=== PATIENT | female | born 1945 | race Caucasian/White ===

== ENCOUNTER 2020-04-08 12:00 | Outpatient (CLI) | payer MEDICARE, SELFPAY ==
--- NOTE | ~2020-04-08 | CT_ITS ---
EXAMINATION: CT chest high resolution wo sc DATE: 04/08/2020 12:18 INDICATION: Interstitial pulmonary disease, unspecified TECHNIQUE: Computed tomography (CT) of the chest was performed without intravenous contrast. The dose -length product (DLP) was 241.79 mGy-cm. Automated exposure control and iterative reconstruction tech nique were employed. COMPARISON: 05/27/2018 FINDINGS: Chronic reticular opacities are again seen in the left lower lobe, lingula, and apical post erior segment of the left upper lobe. There is no honeycombing. No new airspace opacities are identif ied. There is no pleural effusion or pneumothorax. Calcified left hilar and mediastinal lymph nodes a re consistent with old granulomatous disease. The heart size is normal. There are no pathologically e nlarged thoracic lymph nodes. A 4 mm fissural lymph node is noted in the major fissure on the right. No suspicious pulmonary nodules are identified. Punctate calcifications in an otherwise normal spleen likely represent healed granulomatous disease. There is mild thoracic spondylosis. IMPRESSION: 1. Stable lung findings on the left, likely related to prior infection. No acute findings or suspicio us interval change. Reviewed, dictated and finalized at location A. IMPRESSION: 1. Stable lung findings on the left, likely related to prior infection. No acut e findings or suspicious interval change.
== END 2020-04-08 12:01 | disposition home or self-care (01) ==
PROVIDERS: PCP Internal Medicine; Visit Provider Nurse Practitioner Family
DX: J84.9 Interstitial pulmonary disease, unspecified (principal)
CPT/HCPCS: 71250

== ENCOUNTER 2021-04-29 17:02 | IRF | payer MEDICARE, SELFPAY ==
--- NOTE | 2021-04-29 16:52 | ADMGEN ---
This patient, Yudi aVlle, was admitted to [facility] Room 222-02. Patient/family oriented to hospital policies and general routines including ID bracelet, bed and alarms, visiting hours, pain management, procedures, bathroom and other care routines, personal items, smoking policy, room service/diet, and visiting hours. Information on how to activate the Rapid Response Team has been discussed. Patient/Family are encouraged to report perceived risks to care and to ask questions if they do not understand what they are told or what they should do.
[2021-04-29 16:56] VITALS: BMI 27.0
[2021-04-29 16:57] VITALS: BP 157/55; PULSE 74; RESP 16; TEMP 35.9; O2SAT 98
[2021-04-29 17:34] LABS: Glucose Point of Care 117 mg/dl (65-105)
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
[2021-04-29 18:27] VITALS: BMI 27.0
[2021-04-29 19:50] VITALS: PULSE 78; RESP 16
[2021-04-29] MEDS: BUDESONIDE RESPULE NEB 0.5 MG/2 ML AMP INHALATION (19:50)
[2021-04-29 19:57] VITALS: PULSE 75; RESP 16
[2021-04-29] MEDS: GABAPENTIN 100 MG CAPSULE PO (20:52)
[2021-04-29] MEDS: ACETAMINOPHEN 500 MG TABLET 1000 MG PO (20:53)
[2021-04-29] MEDS: CEPHALEXIN 500 MG CAPSULE PO (20:53)
[2021-04-29] MEDS: VERAPAMIL HCL ER 240 MG TABLET.ER PO (20:53)
[2021-04-29] MEDS: CHLORHEXIDINE GLUCONATE 0.12% ORAL RINSE 473 ML BTL (*BKC) 15 ML SWISH/SPIT (20:53)
[2021-04-29] MEDS: hydrALAZINE HCL 50 MG TABLET 100 MG PO (20:53)
[2021-04-29] MEDS: ATORVASTATIN 20 MG TABLET PO (20:53)
[2021-04-29 20:54] VITALS: PULSE 78
[2021-04-29] MEDS: carvediloL 25 MG TABLET PO (20:54)
[2021-04-29] MEDS: LORazepam (*CRX) 1 MG TABLET PO (20:56)
[2021-04-29] MEDS: HEPARIN SODIUM 5,000 UNITS/ML VIAL 5000 UNITS SUB-Q (21:03)
[2021-04-29] MEDS: SALINE 0.65% NAS SOLN 44 ML BTL 1 SPRAY NASAL (21:08)
[2021-04-29 21:22] LABS: Glucose Point of Care 168 mg/dl (65-105)
--- NOTE | 2021-04-29 21:59 | PHAR ---
The patient's home med of Tacrolimus 0.75 mg Tablet Extended Release 24 Hr has been verified.
[2021-04-29 22:00] VITALS: BP 164/61; PULSE 80; RESP 18; TEMP 35.8; O2SAT 98
[2021-04-30] VITALS (8 sets, daily range): BP systolic 109–186; BP diastolic 48–95; PULSE 57–72; RESP 14–20; TEMP 35.8–36.1; O2SAT 96–100; BMI 27.0
[2021-04-30] MEDS: ACETAMINOPHEN 500 MG TABLET 1000 MG PO ×4 (00:03→17:31)
[2021-04-30 05:35] LABS: Alanine Aminotransferase 24 U/L (4-35); Albumin Level 3.8 g/dL (3.5-5.1); Alkaline Phosphatase 90 U/L (38-126); Anion Gap 6 mmol/L (8-16); Aspartate Amino Transferase 31 U/L (14-36); Basophils Absolute Auto 0.1 K/mm3 (0.0-0.1); Basophils Percent Auto 0.4 % (0.2-1.2); Bilirubin,Total 0.3 mg/dL (0.2-1.3); Blood Urea Nitrogen 19 mg/dL (7-17); Calcium 9.4 mg/dL (8.4-10.2); Carbon Dioxide 29 mmol/L (22-30); Chloride 103 mmol/L (98-107); Eosinophils Absolute Auto 0.2 K/mm3 (0-0.3); Eosinophils Percent Auto 1.6 % (0-4.4); Estimated CRCL calculation 45 ml/min; Estimated Glomerular Filt Rate > 60; Glucose 99 mg/dL (65-105); Hematocrit 29.1 % (37.0-47.0); Immature Granulocyte Absolute 0.32 K/mm3 (0.00-0.031); Immature Granulocyte Percent A 2.8 % (0-0.5); Lymphocytes Absolute Auto 2.43 K/mm3 (0.9-3.2); Lymphocytes Percent Auto 21.1 % (18.3-44.2); Mean Corpuscular HGB Conc 30.9 g/dl (32-36); Mean Corpuscular Hemoglobin 32.3 pg (26-34); Mean Corpuscular Volume 104.3 fl (80-100); Mean Platelet Volume 8.9 fl (7.4-10.4); Monocytes Absolute Auto 0.9 K/mm3 (0.1-0.6); Monocytes Percent Auto 8.2 % (2.6-8.5); Neutrophils Absolute Auto 7.6 K/mm3 (1.3-6.7); Neutrophils Percent Auto 65.9 % (45.5-73.1); Nucleated Red Blood Cells Perc 0.3 % (0.0-0.2); Platelet Count Result 418 k/mm3 (150-375); Potassium 3.9 mmol/L (3.4-5.0); Red Blood Count 2.79 M/mm3 (4.2-5.4); Red Cell Distribution Width 16.1 % (11.5-14.5); Sodium 138 mmol/L (137-145); White Blood Count 11.5 K/mm3 (4.5-10.0)
[2021-04-30] MEDS: HEPARIN SODIUM 5,000 UNITS/ML VIAL 5000 UNITS SUB-Q ×3 (05:54→21:15)
[2021-04-30] MEDS: LEVOTHYROXINE SODIUM 50 MCG TABLET PO (05:55)
[2021-04-30 06:27] LABS: Glucose Point of Care 109 mg/dl (65-105)
[2021-04-30] MEDS: glipiZIDE 5 MG TABLET PO (06:42)
[2021-04-30] MEDS: BUDESONIDE RESPULE NEB 0.5 MG/2 ML AMP INHALATION ×2 (08:40→20:38)
[2021-04-30] MEDS: carvediloL 25 MG TABLET PO ×2 (08:56→17:30)
[2021-04-30] MEDS: SERTRALINE HCL 50 MG TABLET 100 MG PO (08:57)
[2021-04-30] MEDS: VERAPAMIL HCL ER 240 MG TABLET.ER PO ×2 (08:57→17:30)
[2021-04-30] MEDS: ASPIRIN 81 MG ENTERIC TABLET PO (08:57)
[2021-04-30] MEDS: GABAPENTIN 100 MG CAPSULE PO ×3 (08:58→17:30)
[2021-04-30] MEDS: hydrALAZINE HCL 50 MG TABLET 100 MG PO ×2 (08:58→17:30)
[2021-04-30] MEDS: predniSONE 5 MG TABLET PO (08:58)
[2021-04-30] MEDS: CEPHALEXIN 500 MG CAPSULE PO ×4 (08:59→20:55)
[2021-04-30] MEDS: PANTOPRAZOLE 40 MG TABLET PO (08:59)
[2021-04-30] MEDS: CHOLECALCIFEROL 1,000 UNITS TABLET 2000 UNITS PO (08:59)
[2021-04-30] MEDS: LORATADINE 10 MG TABLET PO (08:59)
[2021-04-30] MEDS: polyethylene glycoL 3350 17 GM POWD.PACK PO (08:59)
[2021-04-30] MEDS: CHLORHEXIDINE GLUCONATE 0.12% ORAL RINSE 473 ML BTL (*BKC) 15 ML SWISH/SPIT ×4 (09:00→20:55)
[2021-04-30] MEDS: guanFACINE HCL 1 MG TABLET 2 MG PO (10:01)
[2021-04-30 11:28] LABS: Hemoglobin A1C 5.7 % (<5.7)
[2021-04-30 11:31] LABS: Glucose Point of Care 119 mg/dl (65-105)
[2021-04-30] MEDS: traMADol HCL (*CRX) 50 MG TABLET PO (13:10)
--- NOTE | 2021-04-30 13:42 | PCNSR ---
On 04/30/21, the student, Norma Magdaleno, provided care and completed [employer] hospital documentation on this patient. I have reviewed the student's documentation and agree with the findings.
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
[2021-04-30 16:57] LABS: Glucose Point of Care 118 mg/dl (65-105)
[2021-04-30] MEDS: LORazepam (*CRX) 1 MG TABLET PO (20:54)
[2021-04-30] MEDS: ATORVASTATIN 20 MG TABLET PO (20:56)
[2021-04-30 22:31] LABS: Glucose Point of Care 145 mg/dl (65-105)
[2021-05-01] VITALS (9 sets, daily range): BP systolic 101–125; BP diastolic 46–55; PULSE 64–69; RESP 16–18; TEMP 36.3–36.8; O2SAT 95–100
[2021-05-01] MEDS: ACETAMINOPHEN 500 MG TABLET 1000 MG PO ×4 (00:05→17:44)
[2021-05-01] MEDS: HEPARIN SODIUM 5,000 UNITS/ML VIAL 5000 UNITS SUB-Q ×3 (05:56→21:01)
[2021-05-01] MEDS: LEVOTHYROXINE SODIUM 50 MCG TABLET PO (05:56)
[2021-05-01 06:33] LABS: Glucose Point of Care 99 mg/dl (65-105)
[2021-05-01] MEDS: hydrALAZINE HCL 50 MG TABLET 100 MG PO ×2 (07:43→17:43)
[2021-05-01] MEDS: glipiZIDE 5 MG TABLET PO (07:43)
[2021-05-01] MEDS: carvediloL 25 MG TABLET PO ×2 (07:43→17:42)
[2021-05-01] MEDS: traMADol HCL (*CRX) 50 MG TABLET PO ×2 (07:45→12:04)
[2021-05-01] MEDS: VERAPAMIL HCL ER 240 MG TABLET.ER PO ×2 (07:45→17:43)
[2021-05-01] MEDS: PANTOPRAZOLE 40 MG TABLET PO (08:28)
[2021-05-01] MEDS: SERTRALINE HCL 50 MG TABLET 100 MG PO (08:28)
[2021-05-01] MEDS: ASPIRIN 81 MG ENTERIC TABLET PO (08:28)
[2021-05-01] MEDS: CEPHALEXIN 500 MG CAPSULE PO ×4 (08:28→20:59)
[2021-05-01] MEDS: guanFACINE HCL 1 MG TABLET 2 MG PO (08:29)
[2021-05-01] MEDS: predniSONE 5 MG TABLET PO (08:29)
[2021-05-01] MEDS: polyethylene glycoL 3350 17 GM POWD.PACK PO (08:29)
[2021-05-01] MEDS: LORATADINE 10 MG TABLET PO (08:29)
[2021-05-01] MEDS: CHOLECALCIFEROL 1,000 UNITS TABLET 2000 UNITS PO (08:29)
[2021-05-01] MEDS: GABAPENTIN 100 MG CAPSULE PO ×3 (08:29→17:44)
[2021-05-01] MEDS: SENNA/DOCUSATE SODIUM TABLET 1 TAB PO ×2 (08:29→20:59)
[2021-05-01] MEDS: CHLORHEXIDINE GLUCONATE 0.12% ORAL RINSE 473 ML BTL (*BKC) 15 ML SWISH/SPIT ×4 (08:30→21:05)
[2021-05-01] MEDS: BUDESONIDE RESPULE NEB 0.5 MG/2 ML AMP INHALATION ×2 (09:27→17:29)
[2021-05-01 10:25] LABS: Hematocrit 29.2 % (37.0-47.0); Hemoglobin 8.7 g/dL (12.0-15.0); Mean Corpuscular HGB Conc 29.8 g/dl (32-36); Mean Corpuscular Hemoglobin 31.4 pg (26-34); Mean Corpuscular Volume 105.4 fl (80-100); Mean Platelet Volume 8.9 fl (7.4-10.4); Platelet Count Result 462 k/mm3 (150-375); Red Blood Count 2.77 M/mm3 (4.2-5.4); Red Cell Distribution Width 16.7 % (11.5-14.5); White Blood Count 9.6 K/mm3 (4.5-10.0)
[2021-05-01 10:42] LABS: Transferrin 216 mg/dL (206-381)
[2021-05-01] MEDS: SACCHAROMYCES BOULARDII 250 MG CAPSULE PO ×2 (10:47→17:43)
[2021-05-01 11:33] LABS: Iron 78 ug/dL (37-170); Percent Iron Saturation 26 % (20-50)
[2021-05-01 11:42] LABS: Folic Acid 6.5 ng/mL (2.76->20)
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
--- NOTE | 2021-05-01 14:10 | PCRCNOTE ---
PT. DOES NOT WANT TO USE ANY CPAP MACHINE WHILE SHE IS HERE BECAUSE SHE IS AFRAID IT WILL CAUSE PAIN AND INTERFERE WITH HER BROKEN NOSE. PT. STATES SHE DID NOT WEAR ONE WHEN SHE WAS AT [facility]ITH[facility].
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
[2021-05-01 16:48] LABS: Glucose Point of Care 133 mg/dl (65-105)
[2021-05-01 16:48] LABS: Glucose Point of Care 129 mg/dl (65-105)
[2021-05-01] MEDS: ATORVASTATIN 20 MG TABLET PO (20:59)
[2021-05-01] MEDS: LORazepam (*CRX) 1 MG TABLET PO (20:59)
[2021-05-02] VITALS (7 sets, daily range): BP systolic 107–129; BP diastolic 46–65; PULSE 63–68; RESP 16–18; TEMP 35.8–36.4; O2SAT 94–100
[2021-05-02] MEDS: ACETAMINOPHEN 500 MG TABLET 1000 MG PO ×4 (00:05→18:12)
[2021-05-02 05:05] LABS: Glucose Point of Care 196 mg/dl (65-105)
[2021-05-02] MEDS: LEVOTHYROXINE SODIUM 50 MCG TABLET PO (06:01)
[2021-05-02] MEDS: HEPARIN SODIUM 5,000 UNITS/ML VIAL 5000 UNITS SUB-Q ×3 (06:01→21:12)
[2021-05-02 06:27] LABS: Glucose Point of Care 100 mg/dl (65-105)
[2021-05-02] MEDS: BUDESONIDE RESPULE NEB 0.5 MG/2 ML AMP INHALATION ×2 (08:54→20:20)
[2021-05-02] MEDS: GABAPENTIN 100 MG CAPSULE PO ×3 (09:01→18:11)
[2021-05-02] MEDS: glipiZIDE 5 MG TABLET PO (09:02)
[2021-05-02] MEDS: carvediloL 25 MG TABLET PO ×2 (09:02→18:10)
[2021-05-02] MEDS: hydrALAZINE HCL 50 MG TABLET 100 MG PO ×2 (09:03→18:12)
[2021-05-02] MEDS: CHOLECALCIFEROL 1,000 UNITS TABLET 2000 UNITS PO (09:04)
[2021-05-02] MEDS: guanFACINE HCL 1 MG TABLET 2 MG PO (09:04)
[2021-05-02] MEDS: VERAPAMIL HCL ER 240 MG TABLET.ER PO ×2 (09:04→18:12)
[2021-05-02] MEDS: CEPHALEXIN 500 MG CAPSULE PO ×4 (09:04→21:11)
[2021-05-02] MEDS: ASPIRIN 81 MG ENTERIC TABLET PO (09:04)
[2021-05-02] MEDS: LORATADINE 10 MG TABLET PO (09:05)
[2021-05-02] MEDS: predniSONE 5 MG TABLET PO (09:05)
[2021-05-02] MEDS: SERTRALINE HCL 50 MG TABLET 100 MG PO (09:05)
[2021-05-02] MEDS: SACCHAROMYCES BOULARDII 250 MG CAPSULE PO ×2 (09:05→18:12)
[2021-05-02] MEDS: PANTOPRAZOLE 40 MG TABLET PO (09:05)
[2021-05-02] MEDS: traMADol HCL (*CRX) 50 MG TABLET PO ×2 (09:09→12:42)
[2021-05-02] MEDS: CHLORHEXIDINE GLUCONATE 0.12% ORAL RINSE 473 ML BTL (*BKC) 15 ML SWISH/SPIT ×4 (09:09→21:12)
[2021-05-02] MEDS: polyethylene glycoL 3350 17 GM POWD.PACK PO (09:16)
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
[2021-05-02 12:03] LABS: Glucose Point of Care 133 mg/dl (65-105)
[2021-05-02] MEDS: SENNA/DOCUSATE SODIUM TABLET 1 TAB PO ×2 (12:48→18:11)
--- NOTE | 2021-05-02 14:36 | PCPTNOTE ---
Yudi Valle was evaluated for a single point cane on 05/02/2021 by this physical therapist. The single point cane will resolve patient's mobility limitations and will be used for ADL's within the home. The patient can safely use the single point cane. ?The single point cane will resolve the patient?s mobility deficits, including NWBing R UE, decreased balance and endurance.
--- NOTE | 2021-05-02 15:09 | PM.IMPN ---
Progress Note: A&P Assessment and Plan (1) Macrocytic anemia: Code(s): D53.9 - Nutritional anemia, unspecified Status: Acute Assessment and Plan: Reviewed the patient's labs from [facility] which found the patient's hemoglobin to be 8.9, hematocrit 27% With elevated MCV on 04/26/2021. 05/01/21: patient's hemoglobin was 8.7, hematocrit 29%, MCV elevated at 105. I did draw iron panel which was normal, B12 and folic acid which were normal as well. Patient denies any hematochezia, melena or abnormal bleeding issues will continue monitoring her stool will check CBC as needed. transfuse if hemoglobin gets less than 7. No signs of acute bleeding at this time. (2) Right distal ulnar fracture: Code(s): S52.601A - Unspecified fracture of lower end of right ulna, initial encounter for closed fracture Status: Acute Assessment and Plan: Treatment as per [facility] specialist and TR (3) Right radial fracture: Code(s): S52.91XA - Unspecified fracture of right forearm, initial encounter for closed fracture Status: Acute Assessment and Plan: Treatment as per [facility] specialist and TR (4) Nasal fracture: Code(s): S02.2XXA - Fracture of nasal bones, initial encounter for closed fracture Status: Acute Assessment and Plan: Treatment as per [facility] specialist and TR (5) Fracture of left inferior pubic ramus: Code(s): S32.592A - Other specified fracture of left pubis, initial encounter for closed fracture Status: Acute Assessment and Plan: Treatment as per [facility] specialist and TR (6) Closed T11 fracture: Code(s): S22.089A - Unspecified fracture of T11-T12 vertebra, initial encounter for closed fracture Status: Acute Assessment and Plan: Treatment as per [facility] specialist and TR (7) Renal transplant recipient: Code(s): Z94.0 - Kidney transplant status Status: Acute Assessment and Plan: While at [facility] she was seen by the Renal transplant was consulted and she was started on her home immunosuppression of tacrolimus XR 1.5 mg daily. (8) Type 2 diabetes mellitus: Code(s): E11.9 - Type 2 diabetes mellitus without complications Status: Acute Assessment and Plan: continue with home glipizide 5 mg. Glucose has been stable while here. Check glucose ACHS. Hypoglycemic protocol. Sliding scale insulin. (9) Hypertension: Code(s): I10 - Essential (primary) hypertension Status: Acute Assessment and Plan: Patient is on hypertensive medications which include Coreg 25 mg twice daily, hydralazine 100 mg b.i.d. as well as verapamil 240 mg daily. Patient's blood pressure this morning was slightly low at 107/65. the patient did have a lightheadedness episode earlier today but they checked her blood pressure and she said it was normal. The patient will continue working on drinking plenty of fluids to stay hydrated. Will continue monitoring her blood pressure and make adjustments if necessary. (10) Constipation: Code(s): K59.00 - Constipation, unspecified Status: Acute Assessment and Plan: Patient states she takes Senokot twice daily at home and MiraLax as needed for constipation. Will add Senokot to her regimen and continue MiraLax daily. Will add p.r.n. suppository if necessary. Continue monitoring. Time Spent With Patient Time with patient: 25 - 35 minutes Subjective Date/time seen:
[2021-05-02 16:25] LABS: Glucose Point of Care 178 mg/dl (65-105)
[2021-05-02] MEDS: ATORVASTATIN 20 MG TABLET PO (21:11)
[2021-05-02] MEDS: LORazepam (*CRX) 1 MG TABLET PO (21:11)
[2021-05-02 22:09] LABS: Glucose Point of Care 130 mg/dl (65-105)
[2021-05-03] VITALS (8 sets, daily range): BP systolic 110–135; BP diastolic 37–55; PULSE 62–72; RESP 16; TEMP 36.2–36.6; O2SAT 98–99
[2021-05-03] MEDS: ACETAMINOPHEN 500 MG TABLET 1000 MG PO ×5 (00:14→23:45)
[2021-05-03] MEDS: HEPARIN SODIUM 5,000 UNITS/ML VIAL 5000 UNITS SUB-Q (06:10)
[2021-05-03] MEDS: LEVOTHYROXINE SODIUM 50 MCG TABLET PO (06:10)
[2021-05-03 06:39] LABS: Glucose Point of Care 119 mg/dl (65-105)
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
[2021-05-03] MEDS: VERAPAMIL HCL ER 240 MG TABLET.ER PO ×2 (09:37→17:33)
[2021-05-03] MEDS: predniSONE 5 MG TABLET PO (09:37)
[2021-05-03] MEDS: CEPHALEXIN 500 MG CAPSULE PO ×4 (09:37→21:03)
[2021-05-03] MEDS: guanFACINE HCL 1 MG TABLET 2 MG PO (09:37)
[2021-05-03] MEDS: GABAPENTIN 100 MG CAPSULE PO ×3 (09:37→17:33)
[2021-05-03] MEDS: polyethylene glycoL 3350 17 GM POWD.PACK PO (09:37)
[2021-05-03] MEDS: SERTRALINE HCL 50 MG TABLET 100 MG PO (09:38)
[2021-05-03] MEDS: CHOLECALCIFEROL 1,000 UNITS TABLET 2000 UNITS PO (09:38)
[2021-05-03] MEDS: ASPIRIN 81 MG ENTERIC TABLET PO (09:38)
[2021-05-03] MEDS: SENNA/DOCUSATE SODIUM TABLET 1 TAB PO ×2 (09:38→17:35)
[2021-05-03] MEDS: carvediloL 25 MG TABLET PO ×2 (09:38→17:35)
[2021-05-03] MEDS: LORATADINE 10 MG TABLET PO (09:39)
[2021-05-03] MEDS: glipiZIDE 5 MG TABLET PO (09:39)
[2021-05-03] MEDS: PANTOPRAZOLE 40 MG TABLET PO (09:39)
[2021-05-03] MEDS: SACCHAROMYCES BOULARDII 250 MG CAPSULE PO ×2 (09:39→17:34)
[2021-05-03] MEDS: hydrALAZINE HCL 50 MG TABLET 100 MG PO ×2 (09:40→17:34)
[2021-05-03] MEDS: CHLORHEXIDINE GLUCONATE 0.12% ORAL RINSE 473 ML BTL (*BKC) 15 ML SWISH/SPIT ×4 (09:41→21:03)
[2021-05-03] MEDS: BUDESONIDE RESPULE NEB 0.5 MG/2 ML AMP INHALATION ×2 (09:43→22:19)
[2021-05-03 12:14] LABS: Glucose Point of Care 104 mg/dl (65-105)
[2021-05-03] MEDS: traMADol HCL (*CRX) 25 MG TABLET PO ×2 (12:20→16:02)
[2021-05-03 17:06] LABS: Glucose Point of Care 183 mg/dl (65-105)
[2021-05-03] MEDS: LORazepam (*CRX) 1 MG TABLET PO (21:03)
[2021-05-03] MEDS: ATORVASTATIN 20 MG TABLET PO (21:03)
[2021-05-04] VITALS (10 sets, daily range): BP systolic 121–137; BP diastolic 43–55; PULSE 64–73; RESP 16–20; TEMP 35.2–36.6; O2SAT 96–99
[2021-05-04 00:21] LABS: Glucose Point of Care 191 mg/dl (65-105)
[2021-05-04] MEDS: ACETAMINOPHEN 500 MG TABLET 1000 MG PO (06:24)
[2021-05-04] MEDS: LEVOTHYROXINE SODIUM 50 MCG TABLET PO (06:26)
[2021-05-04 06:33] LABS: Glucose Point of Care 166 mg/dl (65-105)
[2021-05-04] MEDS: BUDESONIDE RESPULE NEB 0.5 MG/2 ML AMP INHALATION ×2 (08:23→21:48)
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
[2021-05-04] MEDS: CHOLECALCIFEROL 1,000 UNITS TABLET 2000 UNITS PO (08:46)
[2021-05-04] MEDS: glipiZIDE 5 MG TABLET PO (08:46)
[2021-05-04] MEDS: CEPHALEXIN 500 MG CAPSULE PO ×4 (08:46→20:36)
[2021-05-04] MEDS: ASPIRIN 81 MG ENTERIC TABLET PO (08:46)
[2021-05-04] MEDS: GABAPENTIN 100 MG CAPSULE PO ×3 (08:46→17:26)
[2021-05-04] MEDS: predniSONE 5 MG TABLET PO (08:47)
[2021-05-04] MEDS: carvediloL 25 MG TABLET PO ×2 (08:47→17:26)
[2021-05-04] MEDS: SACCHAROMYCES BOULARDII 250 MG CAPSULE PO ×2 (08:47→17:25)
[2021-05-04] MEDS: PANTOPRAZOLE 40 MG TABLET PO (08:47)
[2021-05-04] MEDS: hydrALAZINE HCL 50 MG TABLET 100 MG PO ×2 (08:47→17:27)
[2021-05-04] MEDS: VERAPAMIL HCL ER 240 MG TABLET.ER PO ×2 (08:47→17:25)
[2021-05-04] MEDS: guanFACINE HCL 1 MG TABLET 2 MG PO (08:47)
[2021-05-04] MEDS: polyethylene glycoL 3350 17 GM POWD.PACK PO (08:48)
[2021-05-04] MEDS: CHLORHEXIDINE GLUCONATE 0.12% ORAL RINSE 473 ML BTL (*BKC) 15 ML SWISH/SPIT ×4 (08:48→20:36)
[2021-05-04] MEDS: SERTRALINE HCL 50 MG TABLET 100 MG PO (08:48)
[2021-05-04] MEDS: SENNA/DOCUSATE SODIUM TABLET 1 TAB PO ×2 (08:48→17:26)
[2021-05-04] MEDS: traMADol HCL (*CRX) 25 MG TABLET PO ×4 (08:55→23:44)
[2021-05-04] MEDS: LORATADINE 10 MG TABLET PO (09:44)
[2021-05-04 12:16] LABS: Glucose Point of Care 149 mg/dl (65-105)
[2021-05-04] MEDS: LORazepam (*CRX) 1 MG TABLET PO (20:35)
[2021-05-04] MEDS: ATORVASTATIN 20 MG TABLET PO (20:37)
[2021-05-04 20:52] LABS: Glucose Point of Care 147 mg/dl (65-105)
[2021-05-05 06:00] VITALS: BP 124/45; PULSE 63; RESP 20; TEMP 36.1; O2SAT 97
[2021-05-05] MEDS: LEVOTHYROXINE SODIUM 50 MCG TABLET PO (06:09)
[2021-05-05 06:19] LABS: Glucose Point of Care 105 mg/dl (65-105)
[2021-05-05] MEDS: CHOLECALCIFEROL 1,000 UNITS TABLET 2000 UNITS PO (08:30)
[2021-05-05] MEDS: GABAPENTIN 100 MG CAPSULE PO (08:30)
[2021-05-05] MEDS: glipiZIDE 5 MG TABLET PO (08:30)
[2021-05-05] MEDS: predniSONE 5 MG TABLET PO (08:30)
[2021-05-05 08:31] VITALS: PULSE 63
[2021-05-05] MEDS: SERTRALINE HCL 50 MG TABLET 100 MG PO (08:31)
[2021-05-05] MEDS: ASPIRIN 81 MG ENTERIC TABLET PO (08:31)
[2021-05-05] MEDS: SACCHAROMYCES BOULARDII 250 MG CAPSULE PO (08:31)
[2021-05-05] MEDS: carvediloL 25 MG TABLET PO (08:31)
[2021-05-05] MEDS: hydrALAZINE HCL 50 MG TABLET 100 MG PO (08:31)
[2021-05-05] MEDS: VERAPAMIL HCL ER 240 MG TABLET.ER PO (08:31)
[2021-05-05] MEDS: PANTOPRAZOLE 40 MG TABLET PO (08:31)
[2021-05-05] MEDS: polyethylene glycoL 3350 17 GM POWD.PACK PO (08:32)
[2021-05-05] MEDS: CEPHALEXIN 500 MG CAPSULE PO (08:32)
[2021-05-05] MEDS: guanFACINE HCL 1 MG TABLET 2 MG PO (08:32)
[2021-05-05] MEDS: SENNA/DOCUSATE SODIUM TABLET 1 TAB PO (08:32)
[2021-05-05] MEDS: LORATADINE 10 MG TABLET PO (08:32)
[2021-05-05] MEDS: CHLORHEXIDINE GLUCONATE 0.12% ORAL RINSE 473 ML BTL (*BKC) 15 ML SWISH/SPIT (08:33)
[2021-05-05 08:34] VITALS: PULSE 68; RESP 16
[2021-05-05] MEDS: BUDESONIDE RESPULE NEB 0.5 MG/2 ML AMP INHALATION (08:34)
[2021-05-05 08:41] VITALS: PULSE 71; RESP 16
--- NOTE | 2021-05-05 09:21 | PM.DS ---
DS: Admitting Diagnosis Admitting Diagnosis Admitting Diagnosis: major multiple trauma DS: Discharge Diagnosis Discharge Diagnosis (1) Right distal ulnar fracture: Code(s): S52.601A - Unspecified fracture of lower end of right ulna, initial encounter for closed fracture Status: Acute Assessment and Plan: Nonweightbearing (2) Right radial fracture: Code(s): S52.91XA - Unspecified fracture of right forearm, initial encounter for closed fracture Status: Acute Assessment and Plan: nonweightbearing (3) Nasal fracture: Code(s): S02.2XXA - Fracture of nasal bones, initial encounter for closed fracture Status: Acute Assessment and Plan: splint and stents (4) Fracture of left inferior pubic ramus: Code(s): S32.592A - Other specified fracture of left pubis, initial encounter for closed fracture Status: Acute Assessment and Plan: weight-bearing as tolerated (5) Closed T11 fracture: Code(s): S22.089A - Unspecified fracture of T11-T12 vertebra, initial encounter for closed fracture Status: Acute Assessment and Plan: weight-bearing as tolerated (6) Hypothyroidism: Code(s): E03.9 - Hypothyroidism, unspecified Status: Acute Assessment and Plan: Synthroid (7) End stage renal disease: Code(s): N18.6 - End stage renal disease Status: Acute (8) Renal transplant recipient: Code(s): Z94.0 - Kidney transplant status Status: Acute Assessment and Plan: immunosuppressive was increased by renal team at [place]. (9) Type 2 diabetes mellitus: Code(s): E11.9 - Type 2 diabetes mellitus without complications Status: Acute Assessment and Plan: Patient has been placed back on her home medications. (10) Hyperlipidemia: Code(s): E78.5 - Hyperlipidemia, unspecified Status: Acute Assessment and Plan: Lipitor (11) Hypertension: Code(s): I10 - Essential (primary) hypertension Status: Acute Assessment and Plan: multiple agents (12) Macular degeneration: Code(s): H35.30 - Unspecified macular degeneration Status: Acute (13) Anxiety: Code(s): F41.9 - Anxiety disorder, unspecified Status: Acute (14) Depression: Code(s): F32.9 - Major depressive disorder, single episode, unspecified Status: Acute Assessment and Plan: Zoloft (15) Sinusitis: Code(s): J32.9 - Chronic sinusitis, unspecified Status: Acute (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 Status: Acute (17) Cough: Code(s): R05 - Cough Status: Acute (18) ILD (interstitial lung disease): Code(s): J84.9 - Interstitial pulmonary disease, unspecified Status: Acute (19) WILEY (obstructive sleep apnea): Code(s): G47.33 - Obstructive sleep apnea (adult) (pediatric) Status: Acute Assessment and Plan: patient is unable to wear CPAP due to there is (20) Persistent asthma without complication: Qualifiers: Asthma severity: unspecified severity Qualified Code(s): J45.909 - Unspecified asthma, uncomplicated Code(s): J45.909 - Unspecified asthma, uncomplicated Status: Acute (21) Seasonal allergic rhinitis: Qualifiers: Allergic rhinitis trigger: unspecified Qualified Code(s): J30.2 - Other seasonal allergic rhinitis Code(s): J30.2 - Other seasonal allergic rhinitis Status: Acute (22) DVT prophylaxis: Code(s): Z29.9 - Encounter for prophylactic measures, unspecified Status: Acute Assessment and Plan: Heparin (23) Prophylactic antibiotic: Code(s): Z79.2 - intermediate card tender (current) use of antibiotics Status: Acute Assessment and Plan: Keflex 500 mg q.i.d.for 2 weeks per Ortho . Bactrim 1 tab daily for one total year post transplant. DS: Summary Hospital Cou
== END 2021-05-05 11:05 | disposition home health service (06) | DRG 560 ==
PROVIDERS: Physician Assistant; Admitting Provider Physical Medicine & Rehabilitation; Visit Provider Physical Medicine & Rehabilitation
DX: S22.088D Other fracture of T11-T12 vertebra, subsequent encounter for fracture with routine healing (principal); Z94.0 Kidney transplant status; D47.Z2 Castleman disease; S32.592D Other specified fracture of left pubis, subsequent encounter for fracture with routine healing; S52.591D Other fractures of lower end of right radius, subsequent encounter for closed fracture with routine healing; S52.691D Other fracture of lower end of right ulna, subsequent encounter for closed fracture with routine healing; V86.65XD Passenger of 3- or 4- wheeled all-terrain vehicle (ATV) injured in nontraffic accident, subsequent encounter; S81.812D Laceration without foreign body, left lower leg, subsequent encounter; S02.2XXD Fracture of nasal bones, subsequent encounter for fracture with routine healing; J98.4 Other disorders of lung; E03.9 Hypothyroidism, unspecified; E11.9 Type 2 diabetes mellitus without complications; E78.5 Hyperlipidemia, unspecified; F41.8 Other specified anxiety disorders; G47.33 Obstructive sleep apnea (adult) (pediatric); J32.9 Chronic sinusitis, unspecified; J45.909 Unspecified asthma, uncomplicated; I10 Essential (primary) hypertension; M18.12 Unilateral primary osteoarthritis of first carpometacarpal joint, left hand; M40.204 Unspecified kyphosis, thoracic region
CPT/HCPCS: 36415; 80053; 82607; 82728; 82746; 82948; 83036; 83540; 83550; 84466; 85025; 85027; 94640; 97110; 97116; 97161; 97165; 97530; 97535; A4248; A9270; J1644; J7512

== ENCOUNTER 2021-06-24 10:38 | Outpatient (RCR) | payer MEDICARE, SELFPAY ==
[2021-05-16 12:26] LABS: Hematocrit 31.3 % (37.0-47.0); Hemoglobin 9.6 g/dL (12.0-15.0); Mean Corpuscular HGB Conc 30.7 g/dl (32-36); Mean Corpuscular Hemoglobin 31.6 pg (26-34); Mean Platelet Volume 8.7 fl (7.4-10.4); Platelet Count Result 393 k/mm3 (150-375); Red Blood Count 3.04 M/mm3 (4.2-5.4); Red Cell Distribution Width 15.1 % (11.5-14.5); White Blood Count 7.4 K/mm3 (4.5-10.0)
[2021-05-16 12:40] LABS: Albumin Level 4.1 g/dL (3.5-5.1); Anion Gap 9 mmol/L (8-16); Blood Urea Nitrogen 20 mg/dL (7-17); Calcium 9.2 mg/dL (8.4-10.2); Carbon Dioxide 26 mmol/L (22-30); Chloride 102 mmol/L (98-107); Estimated Glomerular Filt Rate 54; Glucose 71 mg/dL (65-110); Phosphorus 3.9 mg/dL (2.5-4.5); Potassium 4.3 mmol/L (3.4-5.0); Sodium 137 mmol/L (137-145)
[2021-05-19 05:30] LABS: Tacrolimus Prograf 5.1 mcg/L
[2021-05-28 14:58] LABS: Albumin Level 4.4 g/dL (3.5-5.1)
[2021-05-28 14:59] LABS: Hematocrit 37.3 % (37.0-47.0); Hemoglobin 11.5 g/dL (12.0-15.0); Mean Corpuscular HGB Conc 30.8 g/dl (32-36); Mean Corpuscular Volume 100.5 fl (80-100); Mean Platelet Volume 9.5 fl (7.4-10.4); Platelet Count Result 354 k/mm3 (150-375); Red Blood Count 3.71 M/mm3 (4.2-5.4); Red Cell Distribution Width 14.3 % (11.5-14.5); White Blood Count 7.9 K/mm3 (4.5-10.0)
[2021-05-28 15:07] LABS: Anion Gap 9 mmol/L (8-16); Blood Urea Nitrogen 18 mg/dL (7-17); Calcium 9.9 mg/dL (8.4-10.2); Carbon Dioxide 27 mmol/L (22-30); Chloride 104 mmol/L (98-107); Estimated Glomerular Filt Rate 54; Glucose 101 mg/dL (65-110); Phosphorus 3.9 mg/dL (2.5-4.5); Potassium 3.8 mmol/L (3.4-5.0); Sodium 140 mmol/L (137-145)
[2021-05-30 23:06] LABS: Tacrolimus Prograf 7.3 mcg/L
[2021-06-10 12:47] LABS: Hematocrit 38.2 % (37.0-47.0); Hemoglobin 11.9 g/dL (12.0-15.0); Mean Corpuscular HGB Conc 31.2 g/dl (32-36); Mean Corpuscular Hemoglobin 30.7 pg (26-34); Mean Corpuscular Volume 98.5 fl (80-100); Mean Platelet Volume 9.4 fl (7.4-10.4); Platelet Count Result 436 k/mm3 (150-375); Red Blood Count 3.88 M/mm3 (4.2-5.4); Red Cell Distribution Width 13.9 % (11.5-14.5); White Blood Count 8.1 K/mm3 (4.5-10.0)
[2021-06-10 13:12] LABS: Albumin Level 4.5 g/dL (3.5-5.1); Anion Gap 10 mmol/L (8-16); Blood Urea Nitrogen 20 mg/dL (7-17); Calcium 9.7 mg/dL (8.4-10.2); Carbon Dioxide 27 mmol/L (22-30); Chloride 102 mmol/L (98-107); Estimated Glomerular Filt Rate > 60; Glucose 92 mg/dL (65-110); Sodium 139 mmol/L (137-145)
[2021-06-12 12:04] LABS: Tacrolimus Prograf 5.9 mcg/L
[2021-06-24 11:22] LABS: Hematocrit 38.4 % (37.0-47.0); Mean Corpuscular HGB Conc 31.3 g/dl (32-36); Mean Corpuscular Hemoglobin 29.6 pg (26-34); Mean Corpuscular Volume 94.6 fl (80-100); Mean Platelet Volume 9.5 fl (7.4-10.4); Platelet Count Result 348 k/mm3 (150-375); Red Blood Count 4.06 M/mm3 (4.2-5.4); White Blood Count 11.4 K/mm3 (4.5-10.0)
[2021-06-24 11:35] LABS: Albumin Level 4.3 g/dL (3.5-5.1); Anion Gap 10 mmol/L (8-16); Blood Urea Nitrogen 19 mg/dL (7-17); Carbon Dioxide 28 mmol/L (22-30); Chloride 100 mmol/L (98-107); Estimated Glomerular Filt Rate 54; Glucose 119 mg/dL (65-110); Phosphorus 4.2 mg/dL (2.5-4.5); Potassium 3.8 mmol/L (3.4-5.0); Sodium 138 mmol/L (137-145)
[2021-06-27 00:10] LABS: Tacrolimus Prograf 8.2 mcg/L
== END 2021-08-14 23:59 | disposition home or self-care (01) ==
LOC: HOME HLTH 10:38
DX: S81.812D Laceration without foreign body, left lower leg, subsequent encounter (principal); S32.592D Other specified fracture of left pubis, subsequent encounter for fracture with routine healing; S22.088D Other fracture of T11-T12 vertebra, subsequent encounter for fracture with routine healing
CPT/HCPCS: 80069; 80076; 80197; 85027

== ENCOUNTER 2022-07-30 12:47 | Outpatient (CLI) | payer MEDICARE, SELFPAY ==
--- NOTE | 2022-08-10 13:29 | WPDPFTINT ---
PFT Procedure Performed PFT Procedure Performed Spirometry with Pre/Post Bronchodilator Plethysmography (Lung Vol) Diffusing Cap (DLCO) Flow Vol Loop PFT Interpretation DOS: 07/30/2022 REQUESTING: Dr. Whitman REASON FOR TESTING: Shortness of breath PULMONARY FUNCTION TESTS Results are reliable and reproducible. Spirometry: Pre bronchodilator FEV1 is 1.5 L, 67%, mildly reduced. Pre bronchodilator FVC 2.09 L, 72% mildly reduced. FEV1/FVC ratio 71% normal. After bronchodilators there is a 1% drop in the FVC and a 3% drop in the FEV1. Lung volumes: Total lung capacity 4.22 L, 79%, mild restriction. Residual volume 1.96 L, 82%, normal. RV/TLC is 46% normal. Airway resistance elevated to 86%. Diffusion: DLCO 12.4, 60% predicted, mildly decreased. DLCO/VA is 3.96 L, 96%, normal. Flow volume loop: Unremarkable IMPRESSION: Mild restriction, mild diffusion impairment. No response to bronchodilator. compared to prior studies 09/21/2016, FEV1 was 85% and FVC was 82% normal. No airflow obstruction. TLC was 77%. So she had mild restrictive disease. DLCO is about the same 61%. Spirometry on 11/09/2016 FEV1 is 89% FVC was 81% without airflow obstruction and no change with bronchodilator. Christi Whitman MD
== END 2022-07-30 12:48 | disposition home or self-care (01) ==
LOC: ANHPFT 12:49
PROVIDERS: PCP Internal Medicine Endocrinology, Diabetes & Metabolism; Visit Provider Internal Medicine Critical Care Medicine
DX: J45.909 Unspecified asthma, uncomplicated (principal)
CPT/HCPCS: 94060; 94726; 94729

== ENCOUNTER 2022-12-28 22:34 | Emergency (ER) | payer MEDICARE, SELFPAY ==
--- NOTE | ~2022-12-28 | CT_ITS ---
Non-contrast CT scan of the Abdomen and Pelvis Clinical indication: Abdominal pain, vomiting, renal transplant Technique: 2.5 mm axial scans were obtained through the abdomen and pelvis without intravenous or or al contrast. Dose reduction technique was used on this scan by utilizing automated exposure control a nd iterative reconstruction technique. The dose-length product (DLP) was 522.62 mGy-cm. Findings: Images through the lung bases reveal probable left basilar atelectasis or scarring, less l ikely small airways infection. [place] kidneys are somewhat atrophic with multiple small probable hyperdense cysts present. Larger si mple cyst present at the left midpole measuring 2.8 cm. Calcified hepatic and splenic granulomas are present. The pancreas, gallbladder, and adrenals appear normal. There is no aortic aneurysm. There are atherosclerotic calcifications of the aorta. There are several mildly dilated loops of small bowel in the left midabdomen, with probable minimal h aziness of the adjacent mesentery. Questionable mild wall thickening of the mid descending colon. Rig ht lower quadrant transplant kidney is present, without hydronephrosis, stone, or evident mass. Images through the pelvis are degraded by streak artifact from right hip arthroplasty. There is no ev idence of ascites or lymphadenopathy. Urinary bladder unremarkable. No adnexal mass evident. T11 comp ression fracture noted. Impression: Dilated small bowel is predominantly the left midabdomen, most consistent with partial small bowel ob struction. Questionable mild wall thickening descending colon versus underdistention. Correlate for colitis. Right lower quadrant transplant kidney, unremarkable. Probable small hyperdense cysts in the [place] kidneys. Pre and postcontrast CT or MR would be require d to more definitively exclude small solid mass. Reviewed, dictated and finalized at [facility]. Impression: Dilated small bowel is predominantly the left midabdomen, most consistent with partial small bowel obstruction. Questionable mild wall thickening descending colon versus underdistention. Chuy elate for colitis. Right lower quadrant transplant kidney, unremarkable. Probable small hyperdense cysts in the [place] kidneys. Pre and postcontrast CT or MR would be required to more definitively exclude small solid mass.
[2022-12-28 22:55] VITALS: BP 143/67; PULSE 80; RESP 18; TEMP 36; O2SAT 99
[2022-12-28 23:09] LABS: Basophils Absolute Auto 0.1 K/mm3 (0.0-0.1); Basophils Percent Auto 0.4 % (0.2-1.2); Eosinophils Percent Auto 0.1 % (0-4.4); Hematocrit 43.5 % (37.0-47.0); Hemoglobin 13.6 g/dL (12.0-15.0); Immature Granulocyte Absolute 0.07 K/mm3 (0.00-0.031); Immature Granulocyte Percent A 0.5 % (0-0.5); Lymphocytes Percent Auto 6.4 % (18.3-44.2); Mean Corpuscular HGB Conc 31.3 g/dl (32-36); Mean Corpuscular Volume 92.8 fl (80-100); Mean Platelet Volume 9.4 fl (7.4-10.4); Monocytes Percent Auto 6.8 % (2.6-8.5); Neutrophils Absolute Auto 12.2 K/mm3 (1.3-6.7); Neutrophils Percent Auto 85.8 % (45.5-73.1); Platelet Count Result 344 k/mm3 (150-375); Red Blood Count 4.69 M/mm3 (4.2-5.4); Red Cell Distribution Width 15.2 % (11.5-14.5); White Blood Count 14.1 K/mm3 (4.5-10.0)
[2022-12-28 23:31] LABS: Alanine Aminotransferase 26 U/L (6-35); Albumin Level 4.5 g/dL (3.5-5.1); Alkaline Phosphatase 69 U/L (38-126); Anion Gap 5 mmol/L (8-16); Aspartate Amino Transferase 28 U/L (14-36); Bilirubin,Total 0.7 mg/dL (0.2-1.3); Blood Urea Nitrogen 28 mg/dL (7-17); Calcium 9.3 mg/dL (8.4-10.2); Carbon Dioxide 30 mmol/L (22-30); Chloride 98 mmol/L (98-107); Estimated CRCL calculation 49 ml/min; Estimated Glomerular Filt Rate > 60; Glucose 162 mg/dL (65-110); Lipase 66 U/L (23-300); Sodium 133 mmol/L (137-145)
[2022-12-29] VITALS (20 sets, daily range): BP systolic 161–224; BP diastolic 65–95; PULSE 57–81; RESP 12–19; TEMP 36.6; O2SAT 67–100
[2022-12-29] MEDS: MORPHINE SULFATE (*CRX) 4 MG/ML INJ IV PUSH (01:19)
[2022-12-29] MEDS: ONDANSETRON INJ 4 MG/2 ML VIAL IV PUSH (01:19)
[2022-12-29] MEDS: SODIUM CHLORIDE 0.9% IV 1,000 ML 999 ML IV CONT (01:20)
[2022-12-29] MEDS: PANTOPRAZOLE SODIUM IV 40 MG VIAL IV PUSH (04:29)
[2022-12-29] MEDS: PROCHLORPERAZINE EDISYLATE 10 MG/2 ML VIAL IV PUSH (04:29)
--- NOTE | 2022-12-29 04:53 | ED.GENADULT ---
HPI - General Adult General Chief complaint: Abdominal Pain Stated complaint: abd pain since 1400 vomiting Time Seen by Provider: 12/29/22 00:49 History of Present Illness HPI narrative: Patient 77-year-old female who presents to the emergency department chief complaint of abdominal pain nausea vomiting patient reports she has prior history of renal transplant with a kidney transplant in 2019 at [facility]. Patient states that she has continued to belch and reports that she has a discomfort feeling throughout her abdomen. The patient reports no prior history of small bowel obstructions Related Data Home Medications Medication Instructions Recorded Confirmed aspirin 81 mg tablet,delayed 81 mg PO DAILY 08/24/19 07/08/22 release cholecalciferol (vitamin D3) 50 2,000 unit PO DAILY 08/24/19 07/08/22 mcg (2,000 unit) tablet glipizide 5 mg tablet 5 mg PO DAILY 08/24/19 07/08/22 guanfacine 2 mg tablet 2 mg PO DAILY 08/24/19 07/08/22 levothyroxine 50 mcg tablet 50 mcg PO DAILY 08/24/19 07/08/22 verapamil 240 mg tablet,extended 240 mg PO BID 08/24/19 07/08/22 release 24 hr lorazepam 1 mg tablet 1 mg PO HS 10/08/20 07/08/22 prednisone 5 mg tablet 5 mg PO DAILY 10/08/20 07/08/22 albuterol sulfate 90 mcg/actuation 1 inh inhalation Q6H PRN Shortness 04/29/21 07/08/22 aerosol inhaler Of Breath atorvastatin 20 mg tablet 20 mg PO HS 04/29/21 07/08/22 carvedilol 25 mg tablet 25 mg PO BID 04/29/21 07/08/22 hydralazine 100 mg tablet 100 mg PO BID 04/29/21 07/08/22 pantoprazole 40 mg tablet,delayed 40 mg PO QAM 04/29/21 07/08/22 release sennosides 8.6 mg-docusate sodium 1 tab-cap PO BID PRN Constipation 04/29/21 07/08/22 50 mg tablet sertraline 100 mg tablet 100 mg PO DAILY 04/29/21 07/08/22 azelastine 137 mcg (0.1 %) nasal intranasal 12/29/22 spray aerosol Allergies Allergy/AdvReac Type Severity Reaction Status Date / Time codeine Allergy Severe Swelling Verified 12/28/22 22:35 of Lip/Tongue/Throat Review of Systems Review of Systems: A 10 system review of systems was completed on the patient and is negative except for what is stated in the HPI. Nursing and ancillary documentation was reviewed. [facility] Past Medical History Medical History Anxiety Castleman's disease Constipation Depression End stage renal disease Gastroesophageal reflux disease Hyperlipidemia Hypertension Hypothyroidism Macular degeneration Type 2 diabetes mellitus Surgical History Surgical History History of total left knee replacement Renal transplant recipient 06/2021 Family History Family History Mother Family history of mental disorder Depression Hypertension Father Hypertension Family history of diabetes mellitus in first degree relative Family history of coronary artery disease Daughter No problems noted. Other Diabetes mellitus Family history of cardiovascular disease Family history of heart disease in male family member before age 55 Social History Social History Social History: lives with daughter in a 2 story home with 2 steps to enter. Daughter is disabled due to rheumatoid arthritis. Prior to this patient was completely independent. Daughter will be available to help but cannot provide any lifting assistance. Patient lives in a walkout basement was able to carry laundry basket up and down the stairs. She has installed a chair lift on the basement stairs. Smoking status: Never smoker Second hand tobacco smoke exposure: No Alcohol intake: never Substance use: never Spiritual care concerns: No Exam Narrative: GENERAL: Well-appearing, well-nourished, and in no acute distress. HEAD: Normocephalic, atraumatic. EYES: PERRLA and EOMI. ENT:
[2022-12-29] MEDS: MORPHINE SULFATE (*CRX) 2 MG/ML INJ IV PUSH (05:15)
[2022-12-29] MEDS: SODIUM CHLORIDE 0.9% IV 1,000 ML 150 ML IV CONT (06:18)
--- NOTE | 2022-12-29 07:35 | PC.NURSE ---
To [facility] via [facility]. Condition stable.
== END 2022-12-29 07:49 | disposition short-term general hospital (02) ==
PROVIDERS: Emergency Provider Emergency Medicine; PCP Internal Medicine Endocrinology, Diabetes & Metabolism
DX: K56.600 Partial intestinal obstruction, unspecified as to cause (principal); Z94.0 Kidney transplant status; I12.0 Hypertensive chronic kidney disease with stage 5 chronic kidney disease or end stage renal disease; E11.22 Type 2 diabetes mellitus with diabetic chronic kidney disease; N18.6 End stage renal disease; E78.5 Hyperlipidemia, unspecified; E03.9 Hypothyroidism, unspecified; H35.30 Unspecified macular degeneration; D47.Z2 Castleman disease; K21.9 Gastro-esophageal reflux disease without esophagitis; F32.A Depression, unspecified; F41.9 Anxiety disorder, unspecified; Z96.652 Presence of left artificial knee joint; Z79.82 Long term (current) use of aspirin; Z79.84 Long term (current) use of oral hypoglycemic drugs
CPT/HCPCS: 36415; 74176; 80053; 83690; 85025; 96361; 96374; 96375; 96376; 99285; C9113; J0780; J2270; J2405; J7030

== ENCOUNTER 2023-08-16 09:19 | Outpatient (CLI) | payer MEDICARE, SELFPAY ==
--- NOTE | 2023-09-05 11:13 | WPDSLEEPSTUD ---
Sleep Study Date of Study: 08/16/23 Ordering Provider: Christi Whitman MD Interpreting Physician: Christi Whitman MD Sleep Study Type: CPAP Titration Height: 1.68 m Weight: 75.75 kg Body Mass Index: 26.9 Neck Circumference (inches): 14.5 [place]: 4 Reason for Sleep Study Obstructive sleep apnea; remains sleepy with excellent compliance and has a residual AHI of 12 despite using auto PAP 6-16 cm with 2 EPR; needs a re-titration * 2018- home sleep test, moderate obstructive sleep apnea, AHI 23.9 Sleep History Yudi Valle is a 77-year-old woman with obstructive sleep apnea diagnosed on home sleep test in 2018. She had an AHI of 23.9 mainly obstructive events and has been on auto PAP. She has other significant medical issues including asthma, a kidney transplant in 2019. She never awakens from sleep short of breath. She never wakes at night with heartburn, belching or coughing.??She frequently snores, frequently snores loudly enough that others complain. She constantly has trouble sleeping when she has a cold. She never wakes up gasping for breath during the night. She never has breathing problems at night observed by others. She rarely sweats excessively at night. She never notices her heart pounding or beating irregularly during the night. She never falls asleep involuntarily, never falls asleep while driving. She never experiences loss of muscle tone with strong emotion. She never feels paralyzed on waking or falling asleep. She never experiences vivid dreams upon waking or falling asleep. She never feels afraid of going to sleep. She never has nightmares. She occasionally recalls her dreams. She frequently has thoughts racing through her mind. She occasionally feels sad or depressed. She frequently feels anxiety. She never notices parts of her body jerk. She never kicks during the night. She rarely feels crawling or aching feelings in her legs. She rarely feels leg pain at night. She never has morning jaw pain, and occasionally grinds her teeth at night. She frequently feels bothered by pain during the day, rarely awakened by pain during the night. She never wakes up feeling stiff in the morning, never wakes feeling sore or achy in the morning. She rarely ever awakens with pain in her neck, spine, or joints. Normal bedtime is between 3 and 4:00 a.m., falling asleep within 20 minutes. She wakes up once during the night, long enough to go to the bathroom and is able to return to sleep easily. This occurs in the middle of the night. She reports getting Seven hours of sleep per night. Her wake time is 9:00 a.m.. She keeps the same schedule on weekends. She takes naps in the afternoon or evening. A short nap lasting 10 or 15 minutes may be refreshing. Most of the time she feels adequate immediately after waking. She feels better in the afternoon compared to other times of day. Habits:??Tobacco: Never Caffeine: 2 per day. Alcohol: none Recreational substances: none [facility] Past Medical History Medical History Anxiety Castleman's disease Constipation Depression End stage renal disease Gastroesophageal reflux disease Hyperlipidemia Hypertension Hypothyroidism Macular degeneration Persistent asthma without complication Type 2 diabetes mellitus Surgical History Surgical History History of total left knee replacement Renal transplant recipient 06/2021 Family History Family History Mother Family history of mental disorder Depression Hypertension Father Hypertension Family history of diabetes mellitus in first degree relative Family history of coronary artery disease Daughter No problems noted. Other Diabetes mellitus Family history of cardiovascular disease Family history of heart disease in male family member before age 5
[2023-09-05 13:18] VITALS: BMI 26.9
== END 2023-08-17 06:34 | disposition home or self-care (01) ==
LOC: ANHCSM 09:20
PROVIDERS: PCP Internal Medicine Endocrinology, Diabetes & Metabolism; Visit Provider Internal Medicine Critical Care Medicine
DX: G47.33 Obstructive sleep apnea (adult) (pediatric) (principal); N18.6 End stage renal disease; E78.5 Hyperlipidemia, unspecified; E03.9 Hypothyroidism, unspecified; I12.0 Hypertensive chronic kidney disease with stage 5 chronic kidney disease or end stage renal disease; E11.22 Type 2 diabetes mellitus with diabetic chronic kidney disease
CPT/HCPCS: 95811